=== PATIENT | female | born 1980 | race American Indian/Alaskan Native ===

== ENCOUNTER 2017-10-07 12:12 | Emergency (ER) | payer OTHER ==
[2017-10-07 12:28] VITALS: O2SAT 100
[2017-10-07] MEDS ORDERED: Sodium Chloride 0.9% 1,000 ML IV ONE (13:30)
[2017-10-07] MEDS ORDERED: Sodium Chloride 0.9% 1,000 ML ONE (13:35)
[2017-10-07 13:52] LABS: BASO % 0.3 % (0.0-2.0); EOS % 0.2 % (0.0-4.0); HEMOGLOBIN 11.9 g/dL (11.0-16.0); LYMPH # 0.7 K/uL (1.0-4.3); LYMPH % 9.9 % (20.0-40.0); MEAN CELL VOLUME 81.8 fL (81.0-99.0); MEAN CORPUSCULAR HEMOGLOBIN 27.4 pg (27.0-31.0); MEAN CORPUSCULAR HGB CONC 33.4 g/dL (33.0-37.0); MEAN PLATELET VOLUME 8.4 fL (7.2-11.7); MONO # 0.6 K/uL (0.0-0.8); MONO % 8.6 % (0.0-10.0); NEUT # 5.8 K/uL (1.8-7.0); PLATELET COUNT 152 K/uL (130-400); RBC 4.36 Mil/uL (3.80-5.20); RED CELL DISTRIBUTION WIDTH 14.3 % (11.5-14.5); WHITE BLOOD COUNT 7.2 K/uL (4.8-10.8)
[2017-10-07 13:59] LABS: SQUAMOUS EPITHIAL 9 /hpf (0-5); URINE BACTERIA RARE (<OCC); URINE BILIRUBIN NEGATIVE (NEGATIVE); URINE BLOOD NEGATIVE (NEGATIVE); URINE CLARITY Hazy (Clear); URINE COLOR Yellow (YELLOW); URINE GLUCOSE (UA) NORMAL (Normal); URINE LEUKOCYTE ESTERASE NEG Leu/uL (Negative); URINE NITRATE NEGATIVE (NEGATIVE); URINE PROTEIN 1+ mg/dL (NEGATIVE)
[2017-10-07 14:05] LABS: ALB/GLOB RATIO 1.2 (1.0-2.1); ALBUMIN 4.1 g/dL (3.5-5.0); ALT/SGPT 21 U/L (9-52); AST/SGOT 23 U/L (14-36); BLOOD UREA NITROGEN 5 mg/dL (7-17); CALCIUM 8.7 mg/dl (8.6-10.4); GFR AFRICAN-AMERICAN > 60; GFR NON-AFRICAN AMERICAN > 60; LIPASE 99 U/L (23-300)
--- NOTE | 2017-10-07 14:11 | C.PDOC ---
History Of Present Illness 36 y/o female presents to ED c/o sore throat, cough, shortness of breath, vomiting, diarrhea, decreased appetite, fever, and body aches for the past week. Denies any other complaints. Chief Complaint (Nursing): Female Genitourinary History Per: Patient, Family History/Exam Limitations: clinical condition Onset/Duration Of Symptoms: Days Current Symptoms Are (Timing): Still Present Past Medical History Reviewed: Historical Data, Nursing Documentation, Vital Signs Vital Signs: Last Vital Signs Temp 100 F H 10/07/17 17:21 Pulse 88 10/07/17 17:21 Resp 18 10/07/17 17:21 BP 106/70 10/07/17 17:21 Pulse Ox 100 10/07/17 17:21 Family History: States: Unknown Family Hx - Social History Hx Alcohol Use: No Hx Substance Use: No - Immunization History Hx Tetanus Toxoid Vaccination: No Hx Influenza Vaccination: No Hx Pneumococcal Vaccination: No Review Of Systems Except As Marked, All Systems Reviewed And Found Negative. Constitutional: Positive for: Fever, Weakness (body aches) ENT: Positive for: Throat Pain. Negative for: Ear Pain Cardiovascular: Negative for: Chest Pain, Palpitations Respiratory: Positive for: Cough, Shortness of Breath Gastrointestinal: Positive for: Vomiting, Diarrhea Neurological: Positive for: Dizziness Physical Exam - Physical Exam Appears: Non-toxic, No Acute Distress Skin: Normal Color, Warm, Dry Head: Atraumatic, Normacephalic Eye(s): bilateral: Normal Inspection, EOMI Nose: Normal Oral Mucosa: Moist Tongue: Normal Appearing Lips: Normal Appearing Throat: Normal, No Erythema, No Exudate Neck: Normal ROM, Supple Chest: Symmetrical Cardiovascular: Rhythm Regular, No Murmur Respiratory: Normal Breath Sounds, No Rales, No Rhonchi, No Wheezing Gastrointestinal/Abdominal: Soft, No Tenderness Extremity: Normal ROM, No Deformity Neurological/Psych: Oriented x3, Normal Speech ED Course And Treatment - Laboratory Results Result Diagrams: 10/07/17 13:47 10/07/17 13:47 O2 Sat by Pulse Oximetry: 100 (RA) Pulse Ox Interpretation: Normal Progress Note: Blood work, urinalysis, CXR ordered and reviewed. Pt was given Zofran, and IV fluids. On reassessment, patient is resting comfortably, and is in no acute distress. Discussed with patient that her symptoms are likely due to . Patient is being discharged home, with instructions to follow up with PMD in 1-2 days for further evaluation. Return to ED if symptoms persist or worsen. Disposition - Disposition Referrals: [facility] [Outside] Disposition: HOME/ ROUTINE Disposition Time: 16:56 Condition: GOOD Prescriptions: Cephalexin [Keflex] 500 mg PO TID #21 capsule Forms: Staff Ranker (Upper Sorbian) - Clinical Impression Clinical Impression: UTI (urinary tract infection), - Scribe Statement The provider has reviewed the documentation as recorded by the Scribe Laura Barnett All medical record entries made by the Scribe were at my direction and personally dictated by me. I have reviewed the chart and agree that the record accurately reflects my personal performance of the history, physical exam, medical decision making, and the department course for this patient. I have also personally directed, reviewed, and agree with the discharge instructions and disposition.
[2017-10-07 14:14] LABS: BANDS 9 % (0-2); LYMPHOCYTE 11 % (20-40); MONOCYTE 6 % (0-10); NEUTROPHIL 73 % (50-75); PLATELET ESTIMATE NORMAL (NORMAL); REACTIVE LYMPHOCYTES 1 % (0-0); TOTAL CELLS COUNTED 100
--- NOTE | 2017-10-07 15:20 | RAD ---
HISTORY: sob COMPARISON: No prior. TECHNIQUE: Chest PA and lateral FINDINGS: LUNGS: No active pulmonary disease. PLEURA: No significant pleural effusion identified. No pneumothorax apparent. CARDIOVASCULAR: Normal. OSSEOUS STRUCTURES: No significant abnormalities. VISUALIZED UPPER ABDOMEN: Normal. OTHER FINDINGS: None. IMPRESSION: No active disease.
[2017-10-07 17:22] VITALS: BP 106/70; PULSE 88; RESP 18; TEMP 100
== END 2017-10-07 18:08 | disposition home or self-care (01) ==
LOC: C.ER 12:12
DX: O23.40 Unspecified infection of urinary tract in pregnancy, unspecified trimester (principal); Z3A.00 Weeks of gestation of pregnancy not specified
CPT/HCPCS: 71046; 80053; 81001; 83690; 85025; 96361; 96374; 99285; J2405; J7040

== ENCOUNTER 2018-05-17 17:40 | Inpatient (IN) | payer OTHER ==
[2018-05-17] MEDS ORDERED: Lactated Ringer's 1,000 ML IV ONE (18:09)
[2018-05-17] MEDS ORDERED: Sodium Citrate/Citric Acid 15 ml Sol PO ONE (18:09)
[2018-05-17] MEDS ORDERED: cefOXitin IV 2 gm in Dextrose 2 GM/50 ML BAG IVPB ONE (18:09)
[2018-05-17 18:15] VITALS: BMI 30.5
[2018-05-17 18:34] LABS: BASO % 0.6 % (0.0-2.0); EOS % 0.2 % (0.0-4.0); HEMOGLOBIN 9.2 g/dL (11.0-16.0); LYMPH # 1.4 K/uL (1.0-4.3); LYMPH % 25.3 % (20.0-40.0); MEAN CELL VOLUME 74.1 fL (81.0-99.0); MEAN CORPUSCULAR HEMOGLOBIN 24.4 pg (27.0-31.0); MEAN CORPUSCULAR HGB CONC 32.9 g/dL (33.0-37.0); MEAN PLATELET VOLUME 8.6 fL (7.2-11.7); MONO # 0.5 K/uL (0.0-0.8); MONO % 9.4 % (0.0-10.0); NEUT # 3.6 K/uL (1.8-7.0); NEUT % 64.5 % (50.0-75.0); NRBC % 0.2 % (0.0-2.0); RBC 3.76 Mil/uL (3.80-5.20); RED CELL DISTRIBUTION WIDTH 17.4 % (11.5-14.5); WHITE BLOOD COUNT 5.5 K/uL (4.8-10.8)
[2018-05-17 18:40] LABS: SQUAMOUS EPITHIAL 6 /hpf (0-5); URINE BACTERIA FEW (<OCC); URINE BILIRUBIN NEGATIVE (NEGATIVE); URINE BLOOD 3+ (NEGATIVE); URINE COLOR Yellow (YELLOW); URINE GLUCOSE (UA) NORMAL (Normal); URINE LEUKOCYTE ESTERASE 2+ Leu/uL (Negative); URINE PROTEIN NEGATIVE (NEGATIVE)
[2018-05-17] MEDS ORDERED: Oxytocin 20 units in LR 2,000 ML IV ONE (18:40)
[2018-05-17 18:41] LABS: URINE CLARITY Hazy (Clear)
[2018-05-17] MEDS ORDERED: Sodium Citrate/Citric Acid 15 ml Sol ONE (18:41)
[2018-05-17] MEDS ORDERED: cefOXitin IV 2 gm in Saline 2 GM/50 ML BAG IVPB ONE (18:42)
--- NOTE | 2018-05-17 18:43 | OBHP ---
Datetime: 05/17/2018 18:39 IP Adm Impression: Term, intrauterine IP Chief Complaint Other: vaginal bleeding IP Admit Plan: Admit to unit; Initiate Section protocol Admit Comment, IP Provider: at 38.2weks came with c/o vaginal bleeding and fluid coming 2 hrs a go.c/o ctxs irrhg.pt has been breech. obhx 1 x pmh den med cpnv all nkda psh de sovch de bss breech a/p at 38.2weks breech/prom/vaginal bleeding admit to l_d npo/ivf labs cont raven abd efm skin abxs anthsea aware informed consent taken Pelvic Type - PN: Adequate Extremities - PN: Normal Abdomen - PN: Normal Back - PN: Normal Breast - PN: Normal Lungs - PN: Normal Heart - PN: Normal Thyroid - PN: Normal Neurologic - PN: Normal HEENT - PN: Normal General - PN: Normal FHR - Baseline A Provider: 130 Membranes, Provider: Ruptured Nitrazine Provider: Positive IP Hx Assessment: The History has been Reviewed and is Current EGA AdmitDate IP: 38.2 Vital Signs Provider: Reviewed; Within Normal Limits IP Chief Complaint: Suspected ruptured membranes NICHD Variability Prov Fetus A: Moderate 6-25bpm NICHD Accel Fetus A IP Provider: [id number] FHR Category Provider Fetus A: Category I Dilatation, Provider: 2 Effacement, Provider: 60 Station, Provider: -2 Genitourinary Exam: Normal DTRs - PN: Normal
[2018-05-17] MEDS ORDERED: Oxycodone/Acetaminophen 5/325 mg Tab PO PRN (18:49)
[2018-05-17] MEDS ORDERED: Morphine 1 mg/ml preservative-free Inj(Duramorph) ONE (19:04)
[2018-05-17] MEDS ORDERED: Oxytocin 10 Units/ml Inj ONE (20:27)
[2018-05-17] MEDS ORDERED: Oxycodone/Acetaminophen 5/325 mg Tab ONE (23:35)
[2018-05-17] MEDS: Oxycodone/Acetaminophen 5/325 mg Tab PO PRN (23:37)
--- NOTE | 2018-05-18 06:54 | OBPPN ---
Datetime: 05/18/2018 06:47 PP Pain Prov: Within normal limits PP Nausea Prov: Denies PP Flatus Prov: No PP Comments Phys Exam Prov: fudus belo dressing cllean and dry erxt no edema,no calf te PP Impression Prov: Normal progression PP Plan Prov: Continue present management PP Progress Note Prov: pt was seen at bed side, pain under conrol,no n/v, flatuys _+, catheter still in pod#1 s/p 2 units prbc cbc encourage deit cont painmana cont postb op care Vital Signs Provider PP: Reviewed; Within Normal Limits
[2018-05-18 08:37] LABS: HEMOGLOBIN 10.6 g/dL (11.0-16.0); MEAN CORPUSCULAR HEMOGLOBIN 24.7 pg (27.0-31.0); MEAN CORPUSCULAR HGB CONC 31.9 g/dL (33.0-37.0); MEAN PLATELET VOLUME 8.5 fL (7.2-11.7); RBC 4.28 Mil/uL (3.80-5.20); RED CELL DISTRIBUTION WIDTH 18.9 % (11.5-14.5)
[2018-05-18 08:40] LABS: WHITE BLOOD COUNT 8.6 K/uL (4.8-10.8)
[2018-05-18 08:41] LABS: MEAN CELL VOLUME 77.7 fL (81.0-99.0)
[2018-05-18] MEDS: Prenatal Multivit/Folic Acid/Iron Tab PO SCH (10:42)
[2018-05-18] MEDS: Simethicone 80 mg Chewtab PO SCH ×4 (10:42→21:08)
[2018-05-18] MEDS: Oxycodone/Acetaminophen 5/325 mg Tab PO PRN ×2 (10:42→17:36)
[2018-05-19] MEDS: Simethicone 80 mg Chewtab PO SCH ×4 (10:46→22:28)
[2018-05-19] MEDS: Prenatal Multivit/Folic Acid/Iron Tab PO SCH (10:47)
[2018-05-19] MEDS: Oxycodone/Acetaminophen 5/325 mg Tab PO PRN (10:57)
[2018-05-20] MEDS ORDERED: Magnesium Citrate Oral SOL (300 ml) PO ONE (09:19)
[2018-05-20] MEDS: Prenatal Multivit/Folic Acid/Iron Tab PO SCH (09:35)
[2018-05-20] MEDS: Simethicone 80 mg Chewtab PO SCH ×3 (09:35→18:02)
--- NOTE | 2018-05-20 11:11 | OBPPN ---
Datetime: 05/20/2018 10:53 PP Pain Prov: Within normal limits PP Nausea Prov: Denies PP Flatus Prov: No PP BM Prov: No PP Nausea Prov comment: Not ambulating PP Flatus Prov comment: Not drinking water PP Breasts Prov: Not Done PP Heart Prov: Normal PP Lungs Prov: Normal PP Abdomen/Uterus Prov: Normal PP Lochia Prov: Normal PP Vulva/Perineum Prov: Normal PP CVA Tenderness Prov: Normal PP Extremities Prov: Normal PP C/S Incision Prov: Normal PP Progress Prov: Normal PP Progress Note Prov: POD # 3 Vital Signs Provider PP: Reviewed Vital Signs Provider Details PP: Incison clean, dry and intact
--- NOTE | 2018-05-20 15:31 | NBCIR ---
Datetime: 05/17/2018 17:58 Preformed by:: dr isabel Circumcision Request: Yes Consent Signed: Verbal Consent Obtained; Written Consent Signed and on Chart Position: [place] Board Circumcision Time Out: Correct Patient Identity; Correct Side and Site are Marked; Accurate Procedur e Consent Form; Agreement on Procedure to be Done; Correct Patient Position; Relevant Images and Resu lts are Properly Labeled and Displayed Equipment Used: Gomco Clamp [place] Size: 1.3 Systemic Medications: None Status: Excellent Cosmetic Outcome; Tolerated Procedure Well; Hemostatic Procedure Note: circ done using gomco 1.3 no com Datetime: 05/17/2018 17:54 PT-NAME: CAMILLE DAVILA
--- NOTE | 2018-05-20 19:04 | OBDCSUM ---
Datetime: 05/20/2018 18:55 Discharged to, Provider: Home Follow up at, Provider: Dr. Galan Disch Instr Diet: Regular Discharge Instructions, Provider: Routine instructions given Discharge Diagnosis, Provider: Term Delivered Discharge Time: 05/20/2018 19:00 Follow up in weeks, Provider: 7-10 days Contraception discussed, Prov: Yes Disch Activity Restrictions: No exercising; No lifting; Minimize stair-climbing; No sexual activity; Nothing in vagina - [place], tampons, douche Discharge Comment, Provider: POD # 3 Stable and Satisfactory condition and recovery Incision clean, Dry and intact + Flatus and BM after laxatives given Adequate pain control with Percocet and Motrin and Rx's given by Dr. Galan Circumcision performed by Dr. Galan D/C home in Stable and Satisfactory condition with instructions and Rx's Advised to increase po water and fiber in diet Contraception after Delivery: Undecided
[2018-05-21 07:28] VITALS: BP 114/80; PULSE 80; RESP 18; TEMP 97.5; O2SAT 99
== END 2018-05-20 21:30 | disposition home or self-care (01) | DRG 371 ==
LOC: C.EROB 17:40 → C.4D 18:05 → C.4M 05-18 00:35
PROVIDERS: ADMIT Obstetrics & Gynecology; ATTEND Obstetrics & Gynecology
PROC: 10D00Z1 Extraction of Products of Conception, Low, Open Approach (ICD-10-PCS; principal; 2018-05-17)
PROC: 30233N1 Transfusion of Nonautologous Red Blood Cells into Peripheral Vein, Percutaneous Approach (ICD-10-PCS; 2018-05-17)
DX: O32.1XX0 Maternal care for breech presentation, not applicable or unspecified (principal); O42.02 Full-term premature rupture of membranes, onset of labor within 24 hours of rupture; O34.13 Maternal care for benign tumor of corpus uteri, third trimester; D25.9 Leiomyoma of uterus, unspecified; Z3A.38 38 weeks gestation of pregnancy; Z37.0 Single live birth